=== PATIENT | female | born 1990 | race Asian ===

== ENCOUNTER 2016-11-30 10:27 | Emergency (ER) | payer OTHER ==
[~2016-11-30] VITALS: Ht 167.6 cm; Wt 81.6 kg
[2016-11-30 11:32] LABS: PLATELET COUNT 294 K/uL (152-353)
[2016-11-30 12:24] VITALS: BP 155/116; TEMP 97.8
== END 2016-11-30 12:24 | disposition home or self-care (01) ==
LOC: ED 10:27
DX: J40 Bronchitis, not specified as acute or chronic (principal)
CPT/HCPCS: 36415; 81000; 85027; 87081; 87804; 87880; 99283

== ENCOUNTER 2017-02-19 08:41 | Emergency (ER) | payer OTHER ==
[~2017-02-19] VITALS: Ht 167.6 cm; Wt 83.5 kg
[2017-02-19 08:51] VITALS: TEMP 98.9
[2017-02-19 10:35] VITALS: BP 154/98
== END 2017-02-19 10:36 | disposition home or self-care (01) ==
LOC: ED 08:41
DX: S29.012A Strain of muscle and tendon of back wall of thorax, initial encounter (principal); S39.012A Strain of muscle, fascia and tendon of lower back, initial encounter
CPT/HCPCS: 80307; 81025; 99283; G0479

== ENCOUNTER 2017-03-22 12:43 | Emergency (ER) | payer OTHER ==
[~2017-03-22] VITALS: Ht 167.6 cm; Wt 79.4 kg
[2017-03-22 12:45] VITALS: BP 156/105; TEMP 99.4
== END 2017-03-22 13:15 | disposition home or self-care (01) ==
LOC: ED 12:43
DX: T23.102A Burn of first degree of left hand, unspecified site, initial encounter (principal); T31.0 Burns involving less than 10% of body surface; X10.0XXA Contact with hot drinks, initial encounter; Y92.511 Restaurant or cafe as the place of occurrence of the external cause
CPT/HCPCS: 96372; 99282; J1885

== ENCOUNTER 2017-11-24 13:57 | Emergency (ER) | payer OTHER ==
[~2017-11-24] VITALS: Ht 167.6 cm; Wt 83.0 kg
[2017-11-24 14:02] VITALS: BP 157/96; TEMP 98.4
== END 2017-11-24 14:43 | disposition home or self-care (01) ==
LOC: ED 13:57
DX: M54.5 Low back pain (principal); M25.552 Pain in left hip; M25.562 Pain in left knee; M25.561 Pain in right knee; M79.671 Pain in right foot
CPT/HCPCS: 99281

== ENCOUNTER 2019-04-28 19:25 | Emergency (ER) | payer OTHER ==
[~2019-04-28] VITALS: Ht 167.6 cm; Wt 85.3 kg
[2019-04-28 20:32] LABS: PLATELET COUNT 455 K/uL (152-353)
[2019-04-28 20:59] LABS: POTASSIUM 3.6 mmol/L (3.6-5.2)
[2019-04-28 23:20] VITALS: BP 155/82; TEMP 98.2
== END 2019-04-28 23:20 | disposition home or self-care (01) ==
LOC: ED 19:25
PROVIDERS: Emergency Medicine Emergency Medical Services
DX: O21.0 Mild hyperemesis gravidarum (principal); Z3A.01 Less than 8 weeks gestation of pregnancy
CPT/HCPCS: 80053; 81000; 81025; 85027; 96360; 96375; 99284; J2405

== ENCOUNTER 2019-05-14 20:37 | Emergency (ER) | payer OTHER ==
[~2019-05-14] VITALS: Ht 167.6 cm; Wt 83.0 kg
[2019-05-14 21:10] VITALS: TEMP 99.5
[2019-05-14 22:39] LABS: PLATELET COUNT 366 K/uL (152-353)
[2019-05-14 22:49] LABS: POTASSIUM 3.5 mmol/L (3.6-5.2)
[2019-05-14 23:46] VITALS: BP 138/93
== END 2019-05-15 00:06 | disposition home or self-care (01) ==
LOC: ED 20:37
PROVIDERS: Family Medicine
DX: K52.89 Other specified noninfective gastroenteritis and colitis (principal); O21.9 Vomiting of pregnancy, unspecified; E87.6 Hypokalemia
CPT/HCPCS: 80053; 81000; 85027; 96360; 96365; 96374; 96375; 99284; J2405

== ENCOUNTER 2019-08-03 18:19 | Emergency (ER) | payer OTHER ==
[~2019-08-03] VITALS: Ht 167.6 cm; Wt 83.0 kg
[2019-08-03 22:44] VITALS: BP 128/74; TEMP 97.9
== END 2019-08-03 22:44 | disposition home or self-care (01) ==
LOC: ED 18:19
DX: O23.592 Infection of other part of genital tract in pregnancy, second trimester (principal); Z3A.20 20 weeks gestation of pregnancy; N76.0 Acute vaginitis
CPT/HCPCS: 81000; 81025; 87077; 87088; 87210; 87490; 87590; 87798; 99284

== ENCOUNTER 2019-08-09 16:07 | Emergency (ER) | payer OTHER ==
[~2019-08-09] VITALS: Ht 167.6 cm; Wt 83.5 kg
[2019-08-09 16:22] VITALS: BP 144/76; TEMP 97.9
== END 2019-08-09 18:05 | disposition home or self-care (01) ==
LOC: ED 16:07
DX: A54.02 Gonococcal vulvovaginitis, unspecified (principal)
CPT/HCPCS: 96372; 99282; J0696

== ENCOUNTER 2020-09-30 16:25 | Emergency (ER) | payer OTHER ==
[~2020-09-30] VITALS: Ht 167.6 cm; Wt 87.5 kg
[2020-09-30 16:45] VITALS: TEMP 99.1
[2020-09-30 18:05] VITALS: BP 144/87
== END 2020-09-30 18:05 | disposition home or self-care (01) ==
LOC: ED 16:25
DX: M79.18 Myalgia, other site (principal); M62.830 Muscle spasm of back
CPT/HCPCS: 96372; 99282; J1885